=== PATIENT | male | born 1970 | race Two or more races ===

== ENCOUNTER 2016-09-06 09:19 | Day surgery (SDC) | payer SELFPAY ==
[2016-09-06] MEDS ORDERED: IOPAMIDOL 300 (61%) 150 ML VIAL IV ONE (09:20)
[2016-09-06] MEDS ORDERED: ONDANSETRON 4 MG/2ML 2 ML VIAL ONE ×2 (10:40→12:54)
[2016-09-06] MEDS ORDERED: LACTATED RINGERS 1,000 ML ONE ×2 (10:40→12:31)
[2016-09-06] MEDS ORDERED: HYDROMORPHONE HCL 0.5 MG/0.5 ML SYRINGE ONE (10:41)
[2016-09-06 11:08] LABS: ABSOLUTE NEUTROPHIL COUNT 8.6 K/mm3 (1.8-7.7); BASO % 0.4 % (0.2-1.0); EOS % 0.4 % (0.9-2.9); HEMATOCRIT 42.2 % (32.0-52.0); HEMOGLOBIN 14.7 gm/l (14.0-18.0); IMM NEUT% 0.4 % (0-1); LYMPH # 1.7 (1.0-4.8); LYMPH % 14.9 % (15-45); MEAN CELL VOLUME 87.2 fl (80.0-94.0); MEAN CORPUSCULAR HEMOGLOBIN 30.4 pg (27.0-31.0); MEAN CORPUSCULAR HGB CONC 34.8 g/dl (33.0-37.0); MEAN PLATELET VOLUME 9.7 fl (7.4-10.4); MONO # 0.9 (0.0-0.8); MONO % 7.7 % (4-12); NEUT % 76.2 % (43-75); PLATELET COUNT 275 K/mm3 (130-400); RED CELL DISTRIBUTION WIDTH 11.9 % (11.5-14.5)
[2016-09-06 11:26] LABS: CALCIUM 9.4 mg/dL (8.6-10.3)
--- NOTE | 2016-09-06 11:42 | CT ---
CT ABDOMEN AND PELVIS WITH CONTRAST HISTORY: Pelvic pain with known hernia TECHNIQUE: Following intravenous administration of 1 25 mL Isovue-300, contiguous axial images were acquired from the lung bases to the ischial tuberosities. Oral contrast was not administered. COMPARISON:None. FINDINGS: LUNG BASES: No gross airspace consolidation or pleural effusion. LIVER: No focal lesion. SPLEEN: No focal lesion. PANCREAS: No focal lesion. ADRENAL GLANDS: No mass effect. KIDNEYS: No focal lesion. No collecting system dilatation. GALLBLADDER: Present. BOWEL: And normal wall thickening and enhancement of a few loops of proximal jejunum. Minor fecal load with limited evaluation of distal colon due to decompression. No abnormal small bowel dilatation. APPENDIX: Normal gas-filled appendix. PELVIC ORGANS: No gross mass effect. Inguinal hernia: Large left inguinal hernia with fatty stranding defect approximately 4.3 x 3.0 cm. No associated bowel content. FREE FLUID: No gross free fluid identified. ABDOMINOPELVIC LYMPH NODES: No abnormally enlarged lymph nodes identified. ABDOMINAL AORTA: Normal caliber. OSSEOUS STRUCTURES: Prominent facet degeneration at the L5-S1 level with associated diffuse disc bulge. IMPRESSION: 1. Findings compatible with incarcerated fatty left inguinal hernia. 2. Jejunal wall thickening and enhancement, correlate for enteritis. 3. Prominent disc and facet degeneration at the L5-S1 level. Results were electronically transmitted to the electronic medical record at 08/29/2016 at 1138 hours.
[2016-09-06] MEDS ORDERED: CEFAZOLIN SODIUM 1 GRAM PREMIX 50 ML IV ONE (12:29)
--- NOTE | 2016-09-06 12:43 | PDOC36 ---
Provider Note Note: CC: LEFT groin bulge/pain HPI: 45yo M with LEFT groin bulge/pain. He has had a known LEFT inguinal hernia for the last several years. Last night, he noticed that the bulge would not reduce and he had increasing constant pain. He has had nausea and one bout of NBNB emesis. He has had subjective fevers and a recent runny nose, but denies any recent F/C/NV/CP/SOB, change in bladder fx, constipation, diarrhea, unintentional weight loss, easy bleeding/bruising, or other associated symptoms. REVIEW OF SYSTEMS CONSTITUTIONAL: As per HPI. EARS, NOSE, MOUTH, THROAT: ~As per HPI. CARDIOVASCULAR: ~As per HPI. RESPIRATORY: ~As per HPI. GASTROINTESTINAL: ~As per HPI. GENITOURINARY: ~As per HPI. NEUROLOGICAL: ~No history of seizures HEMATOLOGIC: ~As per HPI. MUSCULOSKELETAL: ~No change in strength. LYMPHATICS: ~No history of splenectomy. PSYCHIATRIC: ~No change in personality or affect PMH: None PSH: Open RIGHT inguinal hernia repair approx. 2009 Meds: MVI All: NKDA SH: Occasional EtOH, denies tobacco FH: No FH of cancers VS reviewed, normal/stable Physical Exam: General/Constitutional: Vitals documented above, comfortable in NAD Psych: A&O x 3, normal judgment and insight. Recent and remote memory intact. Mood and affect normal. Eyes: Pupils equal, no scleral icterus Ears, Nose, Mouth, Throat: gross hearing intact Neck: Supple Heart: RRR, no LE edema Lungs: Equal rise and fall of chest wall, non-labored breathing, no audible wheezes Neuro: Gross sensation intact Abdomen: Soft, NT/ND, no guarding. : Testicles symmetric without masses. Penis normal without lesions. Well healed RIGHT inguinal incision. Large non-reducible and moderately tender LEFT inguinal hernia. Lymph: No inguinal lymphadenopathy Labs: CBC: 11.3/14.7/42.2/275 (76.2% granulocytes) Chem: K 3.5, glucose 108, Cr 0.8, lytes o/w normal CT ABDOMEN AND PELVIS WITH CONTRAST (09/06/16): FINDINGS: LUNG BASES: No gross airspace consolidation or pleural effusion. LIVER: No focal lesion. SPLEEN: No focal lesion. PANCREAS: No focal lesion. ADRENAL GLANDS: No mass effect. KIDNEYS: No focal lesion. No collecting system dilatation. GALLBLADDER: Present. BOWEL: And normal wall thickening and enhancement of a few loops of proximal jejunum. Minor fecal load with limited evaluation of distal colon due to decompression. No abnormal small bowel dilatation. APPENDIX: Normal gas-filled appendix. PELVIC ORGANS: No gross mass effect. Inguinal hernia: Large left inguinal hernia with fatty stranding defect approximately 4.3 x 3.0 cm. No associated bowel content. FREE FLUID: No gross free fluid identified. ABDOMINOPELVIC LYMPH NODES: No abnormally enlarged lymph nodes identified. ABDOMINAL AORTA: Normal caliber. OSSEOUS STRUCTURES: Prominent facet degeneration at the L5-S1 level with associated diffuse disc bulge. IMPRESSION: 1. Findings compatible with incarcerated fatty left inguinal hernia. 2. Jejunal wall thickening and enhancement, correlate for enteritis. 3. Prominent disc and facet degeneration at the L5-S1 level. A/P: 45yo M with large fat containing incarcerated LEFT inguinal hernia. I recommend an open LEFT inguinal hernia repair and possible diagnostic laparoscopy if there is a concern for damage to the bowel (no involvement on CT scan) today. The operation and expected post-operative course were discussed at length. We discussed the risks of the operation to include, but not limited to: bleeding, pain, infection, scar, chronic pain, damage to surrounding structures ( including vas deferens, bowel, bladder, and testicle), recurrence, urinary retention, need for additional procedures, and the risks of anesthesia (heart attack, arrhythmia, stroke, blood clot, and ). The patient understands these risks and agrees to proceed with surgery. Federico Tomas MD Staff General Surgeon
[2016-09-06] MEDS ORDERED: ROCURONIUM BROMIDE 10 MG/ML DOSE IV ONE (12:54)
[2016-09-06] MEDS ORDERED: PROPOFOL 20 ML IV ONE (12:54)
[2016-09-06] MEDS ORDERED: FENTANYL 5 ML ONE (12:54)
[2016-09-06] MEDS ORDERED: LIDOCAINE 2% (PRES FREE) 5 ML VIAL ONE (12:54)
[2016-09-06] MEDS ORDERED: MIDAZOLAM HCL 5 MG/5 ML VIAL ONE (12:55)
[2016-09-06] MEDS ORDERED: LIDOCAINE 1% (PRES FREE) 30 ML VIAL ONE (12:56)
[2016-09-06] MEDS ORDERED: BUPIVACAINE 0.5% (PRES FREE) 30 ML VIAL ONE (12:56)
[2016-09-06] MEDS ORDERED: LIDOCAINE 1%/EPI (MULTI DOSE) 20 ML VIAL ONE (13:14)
[2016-09-06] MEDS ORDERED: PROMETHAZINE HCL 25 MG/ML VIAL IM PRN (13:41)
[2016-09-06] MEDS ORDERED: ONDANSETRON 4 MG/2ML 2 ML VIAL IV PRN ×2 (13:41→16:26)
[2016-09-06] MEDS ORDERED: FENTANYL 100 MCG/2 ML VIAL IV PRN (13:41)
[2016-09-06] MEDS ORDERED: HYDROMORPHONE HCL 1 MG/ML SYRINGE IV PRN (13:41)
[2016-09-06] MEDS ORDERED: LACTATED RINGERS 1,000 ML IV SCH (13:45)
[2016-09-06] MEDS ORDERED: KETOROLAC TROMETHAMINE 30 MG/ML 1 ML VIAL ONE (14:35)
[2016-09-06] MEDS ORDERED: FENTANYL 100 MCG/2 ML VIAL ONE (14:55)
--- NOTE | 2016-09-06 15:54 | PCMBPN ---
Brief Post Op Note: Date of Procedure: 09/06/16 Start Time: 1344 Preoperative Diagnosis: 1. Incarcerated LEFT inguinal hernia Postoperative Diagnosis: 1. LOW Procedure: Open LEFT inguinal hernia repair, LEFT orchiopexy Surgeon: Federico Tomas Assist:Janeen Santiago Anesthesia: GETA Findings: Large incarcerated fat containing LEFT inguinal hernia with distal sac scarred to testicle. Orchiopexy performed given abscence of scrotal attachements after sac excised. Condition: Stable Complications: None IV Fluids: 2200 mLs of LR Urine Output: 50 mLs Estimated Blood Loss: 50 mLs Tourniquet Time: N/A Specimens: Hernia Sac Implants: N/A Drains: N/A
--- NOTE | 2016-09-06 16:10 | PDOC36 ---
Provider Note Note: OPERATIVE REPORT Date of Operation: 09/06/16 Pre-Op Diagnosis: Incarcerated LEFT inguinal hernia Post-Op Diagnosis: Incarcerated Indirect LEFT inguinal hernia Operation: Open LEFT inguinal hernia repair, LEFT orchiopexy Surgeon: Federico Tomas MD Chain Machine Operator: Janeen Santiago Anesthesia: GETA Pre-Operative Antibiotics: Ancef 2g Specimen Sent to Lab: Hernia Sac Infection Classification: 1 Estimated Blood Loss: 50mL Indication for Procedure: The patient is a 45 year old man who presents with 12 hours of a non-reducible LEFT groin bulge with associated pain. A CT scan shows a large incarcerated fat containing inguinal hernia without involvement of bowel. Manual reduction in the ER was unsuccessful. The plan for today is an open LEFT inguinal hernia repair. Description of Findings: There was a large incarcerated indirect LEFT inguinal hernia. The distal sac was scarred to the testicle. Upon complete excision of the sac, the testicle was viable but had no further attachments to the scrotum. A LEFT orchiopexy was performed and the hernia was repaired with a Bard polypropylene mesh. Detailed Operative Report: The patient was met in the pre-operative holding area by the operating team. All questions and concerns were addressed appropriately. The patient was taken to the operating room where general anesthesia was induced. A Brown catheter was placed. The abdomen, both groins, and the scrotum were prepped and draped in the normal sterile fashion. Local anesthetic was injected into the proposed incision site. An incision was made between the left anterior superior iliac spine and the left pubic tubercle. The subcutaneous tissue was dissected with electrocautery. The aponeurosis of the external oblique was encountered and divided along the course of its fibers. The ilioinguinal nerve was identified and preserved. The vas deferens and testicular vessels were identified and preserved. The spermatic cord was mobilized and encircled with a alba drain. The spermatic cord was skeletonized there was a large incarcerated fat containing indirect inguinal hernia. The inguinal floor was examined and there was no direct defect. The distal hernia sac was very adherent to the testicle. Upon complete dissection and excision of the hernia sac, the testicle had no remaining attachments to the scrotum. The testicle itself was viable and well perfused. I called the urologist integration engineer, Dr. John Davila, who recommended orchiopexy. The scrotum was inverted and the tunica of the testicle was secured to the scrotum with interrupted 3-0 silk sutures both distally and laterally. The hernia sac was opened and contained viable omentum without involvement of bowel. The contents were easily reduced back into the peritoneal cavity. The hernia sac was highly ligated with a 0 silk stick tie. The hernia was repaired with a Bard Polypropylene mesh. The mesh was secured with multiple interrupted 2 -0 Vicryl sutures to the parminder-osteum of the pubic tubercle, the conjoined tendon , and the shelving edge of the inguinal ligament. The two tails of the mesh were re-approximated with 2-0 Vicryl to recreate the internal ring. The remainder of the mesh laid flush below the aponeurosis of the external oblique. The wound was thoroughly irrigated and hemostasis was ensured. The aponeurosis of the external oblique was re-approximated with running 3-0 Vicryl. Scarpas fascia was re-approximated with running 3-0 Vicryl. The skin was closed with 4- 0 Monocryl. The wound was dressed with mastisol, steri-strips, telfa, and a sterile dressing. The Brown catheter was removed. The patient was then awakened from anesthesia, extubated, and transferred to the PACU without complication. Prior to closing, all sponge and instrument counts were correct. FEDERICO TOMAS MD
[2016-09-06] MEDS ORDERED: BLISTEX LIPSTICK 1 EACH TP PRN (16:26)
[2016-09-06] MEDS ORDERED: MENTHOL/CETYLPYRD 1 EACH LOZENGE PO PRN (16:26)
[2016-09-06] MEDS ORDERED: MORPHINE SULFATE 2 MG/ML SYRINGE IV PRN (16:26)
[2016-09-06] MEDS ORDERED: MORPHINE SULFATE 4 MG/ML SYRINGE IV PRN (16:35)
[2016-09-06] MEDS ORDERED: PUMP TUBING ONE (17:40)
[2016-09-06] MEDS: LACTATED RINGERS 1,000 ML IV SCH (17:44)
[2016-09-06 18:00] VITALS: BMI 27.4
[2016-09-06] MEDS: OXYCODONE/ACETAMINOPHEN 5/325 MG TABLET PO PRN (23:53)
[2016-09-07 07:37] VITALS: BP 121/76
[2016-09-07] MEDS: OXYCODONE/ACETAMINOPHEN 5/325 MG TABLET PO PRN ×2 (07:49→10:48)
[2016-09-07] MEDS: LACTATED RINGERS 1,000 ML IV SCH (08:53)
--- NOTE | 2016-09-07 08:56 | PDOC43 ---
- Subjective S: Moderate pain well controlled with oral pain medications. Tolerated clear liquids. Met DTV. Minimal ambulation. O: VSS, adequate UOP Physical Exam: General/Constitutional: Vitals documented above, comfortable in NAD Psych: A&O x 3, normal judgment and insight. Recent and remote memory intact. Mood and affect normal. Eyes: Pupils equal, no scleral icterus Ears, Nose, Mouth, Throat: gross hearing intact Neck: Supple Heart: RRR, no LE edema Lungs: Equal rise and fall of chest wall, non-labored breathing, no audible wheezes Neuro: Gross sensation intact Abdomen: Soft, NT/ND, no guarding. : Testicles both in scrotum and symmetric without masses. Moderate LEFT testicle TTP. Penis normal without lesions. Incision covered by bandage that is c/d/i. No Labs A/P: 45yo M doing well POD#1 s/p open LEFT inguinal hernia repair and orchiopexy for incarcerated fat containing LEFT inguinal hernia. Will advance diet to regular. Anticipate discharge today. Federico Tomas MD General Surgeon - Objective Vital Signs Temperature 99.6 F 09/07/16 07:36 Pulse Rate 72 09/07/16 07:36 Respiratory Rate 16 09/07/16 07:51 Blood Pressure 121/76 09/07/16 07:36 O2 Saturation by Pulse Oximetry 98 09/07/16 07:36 Oxygen Delivery Method Room Air Oxygen Flow Rate 0 Laboratory 09/06/16 10:50 09/06/16 10:50 09/06/16 10:50 Estimated GFR 105 H Active Medication Orders Category Date Time Status Lactated Ringers 1,000 ml Med 09/06/16 16:26 Active IV 75 mls/hr Lip [place] [Blistex] Med 09/06/16 16:26 Active 1 each TP PRN PRN Menthol/Cetylpyridinium [Cepacol] Med 09/06/16 16:26 Active 1 each PO PRN PRN Morphine Sulfate Med 09/06/16 16:26 Active 1 - 4 mg IV Q1H PRN Morphine Sulfate Med 09/06/16 16:35 Active 1 - 4 mg IV Q1H PRN Ondansetron 4 mg/2ml Vial [Zofran] Med 09/06/16 16:26 Active 4 mg IV Q4H PRN Oxycodone HCl/Acetaminophen [Percocet 5/325] Med 09/06/16 16:26 Active 1 - 2 tab PO Q4H PRN Sodium Chloride 0.9% Flush [Normal Saline 10ml Flush] Med 09/06/16 16:26 Active 10 - 50 ml IV PRN PRN Sodium Chloride 0.9% Flush [Normal Saline 10ml Flush] Med 09/06/16 17:00 Active 10 ml IV Q8HR Intake and Output 09/05/16 09/06/16 09/07/16 23:59 23:59 23:59 Intake Total 2300 575 Output Total 650 200 Balance 1650 375
--- NOTE | 2016-09-07 09:25 | PDOC5 ---
ADMIT DATE: DISCHARGE DATE: 09/07/16 ADMISSION DIAGNOSES: incarcerated LEFT inguinal hernia PROCEDURES PERFORMED THIS HOSPITALIZATION: open LEFT inguinal hernia repair, LEFT orchiopexy CONSULTATIONS: General Surgery HOSPITAL COURSE: This is a 45 year old underwent an open LEFT inguinal hernia repair and LEFT orchiopexy for a large incarcerated fat containing LEFT inguinal hernia. He tolerated the procedure well. On POD#1, he was tolerating a regular diet, his pain was well controlled with oral pain medication, and he was ambulating without difficulty. He was discharged home in good condition. - Objective Vital Signs Temperature 99.6 F 09/07/16 07:36 Pulse Rate 72 09/07/16 07:36 Respiratory Rate 16 09/07/16 07:51 Blood Pressure 121/76 09/07/16 07:36 O2 Saturation by Pulse Oximetry 98 09/07/16 07:36 Oxygen Delivery Method Room Air Oxygen Flow Rate 0 - Discharge Plan Instruction Forms: Inguinal Hernia Repair Forms: Work Release Form Prescriptions: Naproxen [NAPROSYN 500 MG TABLET (SHF)] 500 mg PO BID #30 tablet Oxycodone HCl/Acetaminophen [PERCOCET 5/325 MG TABLET (SHF)] 1 - 2 tab PO Q4H PRN #40 tab PRN Reason: Pain Polyethylene Glycol 3350 [MIRALAX 17 G PACKET (SHF)] 17 g PO X1 #1 bot Follow-Up: Terrence Tomas MD [Family Provider] -
--- NOTE | 2016-09-10 11:01 | SURGPATH ---
[facility] [address] [place] [id number] Patient Name: MIRA CONDE MR#: [id number] : 1970 Gender: M Specimen #: [id number] Collected: 09/06/2016 Received: 09/09/2016 Reported: 09/10/2016 Submitting Phys: KANWAL FREGOSO Copy To Phys: [facility] Clinical History / Pre-Operative Diagnosis: Left incarcerated inguinal hernia Specimen Source / Surgical Procedure Performed: Hernia sac from left groin Interpretation: HERNIA SAC FROM LEFT GROIN, HERNIORRHAPHY: - FIBROTIC HERNIA SAC Electronically Signed Out Cheng Live M.D. Gross Description: The specimen is received in formalin labeled with the patient's name and "hernia sac from left groin". The specimen consists of a 6.0 x 3.5 x 3.0 cm portion of saldivar fibromembranous tissue and a 7.0 x 6.0 x 2.0 cm portion of fatty tissue. A specimen is consistent with a hernia sac and associated fat. Kitchen And Counter Worker submitted in one cassette. RUPESH Robles Microscopic Description: The sections show fibromembranous tissue and adipose tissue. There are areas of fibrosis. 1: 68040 K40.90
== END 2016-09-07 10:50 | disposition home or self-care (01) ==
LOC: ED 09:19 → SDC 12:20 → MS 16:05 → SDC 09-07 10:50
PROVIDERS: ATTEND Surgery
PROC: 0YU60JZ Supplement Left Inguinal Region with Synthetic Substitute, Open Approach (ICD-10-PCS; principal; 2016-09-06)
PROC: 0YU60JZ Supplement Left Inguinal Region with Synthetic Substitute, Open Approach (ICD-10-PCS; 2016-09-06)
DX: K40.30 Unilateral inguinal hernia, with obstruction, without gangrene, not specified as recurrent (principal); R93.3 Abnormal findings on diagnostic imaging of other parts of digestive tract; M51.37 Other intervertebral disc degeneration, lumbosacral region
CPT/HCPCS: 49507; 54640; 85025; 80048; 74177; 94010; 96375; 99284; 96374; 96361; 99285; C1781; J0690; J3010 ×2; J2270; A9270 ×3; J1885; J2250; J2405 ×2; J7120 ×3; Q9967; J1170